=== PATIENT | female | born 1960 | race Caucasian/White ===

== ENCOUNTER 2019-03-28 02:33 | Emergency (ER) | payer BC ==
[2019-03-28] MEDS ORDERED: Diltiazem 125 MG/25 ML ONE (03:09)
[2019-03-28] MEDS ORDERED: Sodium Chloride 0.9% 100 ML ONE (03:11)
[2019-03-28 03:32] LABS: Hemoglobin 14.7 g/dL (12.0-16.0); Mean Corpuscular HGB CONC 32.1 g/dL (32.0-36.0); Mean Corpuscular Hemoglobin 26.3 pg (27.0-31.0); Mean Corpuscular Volume 81.7 fL (78.0-98.0); Mean Platelet Volume 9.9 fL (7.4-10.4); Platelet Count 247 thou/uL (130-400); RBC Distribution Width 14.3 % (11.5-14.5); Red Blood Cell (RBC) Count 5.58 mill/uL (4.20-5.40); White Blood Cell (WBC) Count 10.3 thou/uL (4.8-10.8)
[2019-03-28 03:37] LABS: ALT (SGPT) 39 U/L (8-55); AST (SGOT) 25 U/L (5-34); Albumin 4.2 g/dL (3.5-5.0); Alkaline Phosphatase 103 U/L (40-150); Anion Gap 16 mmol/L (10-20); BUN (Urea Nitrogen) 20 mg/dL (9.8-20.1); Bilirubin, Total 0.5 mg/dL (0.2-1.2); Calc. Creatinine Clearance 0 mL/min (70-130); Carbon Dioxide 25 mmol/L (22-29); Chloride 103 mmol/L (98-107); Estimated GFR-MDRD 58; Globulin 3.7 g/dL (2.4-3.5); Glucose 144 mg/dL (70-105); Potassium 3.6 mmol/L (3.5-5.1); Protein, Total 7.9 g/dL (6.0-8.3); Sodium 140 mmol/L (136-145)
[2019-03-28 03:48] LABS: Lymphocytes 35 % (21-51); MDiff Complete? YES; Monocytes 3 % (0-10); Neutrophil 60 % (42-75); Platelet Morphology Comment Appears Adequate; RBC Morphology Normal; Reactive Lymphocytes 1 % (0-10)
--- NOTE | 2019-03-28 09:10 | RAD ---
PORTABLE CHEST: Date: 03/28/19 An AP portable film at 0317 hours shows the heart to be upper normal in size given AP technique and h abitus. There is no vascular congestion or edema. There is no pleural effusion. The lungs are clear. The trachea is midline. IMPRESSION: Borderline heart size. POS: HOME
== END 2019-03-28 03:50 | disposition short-term general hospital (02) ==
LOC: BURERS 02:33
DX: I48.91 Unspecified atrial fibrillation (principal); I10 Essential (primary) hypertension; E03.9 Hypothyroidism, unspecified; E66.9 Obesity, unspecified; Z79.899 Other long term (current) drug therapy
CPT/HCPCS: 71045; 80053; 83880; 84443; 84484; 85025; 93005; 96365; 96376; J3490